=== PATIENT | male | born 1960 | race African-American/Black ===

== ENCOUNTER 2018-10-26 09:12 | Outpatient (CLI) | payer OTHER ==
[2018-10-26 11:44] LABS: Hemoglobin 12.7 g/dL (14.0-18.0); Mean Corpuscular HGB CONC 32.7 g/dL (32.0-36.0); Mean Corpuscular Hemoglobin 29.6 pg (27.0-31.0); Mean Corpuscular Volume 90.5 fL (78.0-98.0); Platelet Count 268 thou/uL (130-400); RBC Distribution Width 13.5 % (11.5-14.5); Red Blood Cell (RBC) Count 4.28 mill/uL (4.70-6.10); White Blood Cell (WBC) Count 7.2 thou/uL (4.8-10.8)
[2018-10-26 12:08] LABS: Anion Gap 15 mmol/L (10-20); BUN (Urea Nitrogen) 20 mg/dL (8.4-25.7); Calc. Creatinine Clearance 0 mL/min (70-130); Calcium 9.9 mg/dL (7.8-10.44); Carbon Dioxide 24 mmol/L (22-29); Chloride 104 mmol/L (98-107); Estimated GFR-MDRD 80; Glucose 118 mg/dL (70-105); Potassium 5.1 mmol/L (3.5-5.1); Sodium 138 mmol/L (136-145)
--- NOTE | 2018-10-26 16:31 | EKG ---
Test Reason : Blood Pressure : / mmHG Vent. Rate : 067 BPM Atrial Rate : 067 BPM P-R Int : 154 ms QRS Dur : 092 ms QT Int : 410 ms P-R-T Axes : 013 -03 006 degrees QTc Int : 433 ms Normal sinus rhythm Normal ECG No previous ECGs available Confirmed by ROB SONG, DR. Peralta ([id number]) on 10/26/2018 4:31:27 PM Referred By: HELLEN Confirmed By:DR. Kathryn RIVAS MD
== END 2018-10-26 09:13 | disposition home or self-care (01) ==
LOC: LABBT 09:12
PROVIDERS: ATTEND Neurological Surgery
DX: Z01.818 Encounter for other preprocedural examination (principal); M51.26 Other intervertebral disc displacement, lumbar region; E88.2 Lipomatosis, not elsewhere classified; G45.0 Vertebro-basilar artery syndrome
CPT/HCPCS: 80048; 85027; 93005; 93010

== ENCOUNTER 2018-11-02 06:20 | Day surgery (SDC) | payer OTHER ==
[2018-10-26 10:24] VITALS: BMI 30.6
[2018-11-02] MEDS ORDERED: Bupivacaine HCl 0.5%/Epinephrine 1:200,000/PF 30 ml Vial ONE (06:35)
[2018-11-02] MEDS ORDERED: ceFAZolin Sodium (SDC) 2 GM/100 ML BAG ONE ×2 (07:10→11:34)
[2018-11-02] MEDS ORDERED: Fentanyl 100 MCG/2 ML VIAL ONE ×3 (07:28→10:24)
--- NOTE | 2018-11-02 09:38 | OP ---
DATE OF PROCEDURE: 11/02/2018 ENTRY LEVEL MARKETING ASSISTANT: Eleazar Ramirez PA-C INDICATION: Pain. DIAGNOSIS: Lumbar stenosis with lumbar radiculopathy. PROCEDURES PERFORMED: L3 through L5 lumbar decompression, bilateral L5 foraminotomies. ANESTHESIA: General. DESCRIPTION OF PROCEDURE: The patient was brought into the operating room and placed under general anesthesia. He was flipped from the supine to prone position on the operating room table. A linear incision was planned spanning L3 through the top of S1. After prepping and draping and after an appropriate preoperative pause, the incision was created. The soft tissues were swept away from midline. Self-retaining retractors were placed in the wound for optimal exposure. After confirming the appropriate level with C-arm fluoroscopy, the spinous processes of L4, L5, and inferior aspect of L3 were removed. A high-speed cutting drill bit as well as 2, 3, and 4 mm Kerrisons were used to complete the laminectomy. The laminectomy was extended bilaterally to encompass the medial aspect of the facet joints nor adequately decompress the lateral recesses. There was a substantial degree of epidural fat present. This was also carefully suctioned away. After decompressing the central canal on the lateral recesses, we redirected our attention to foramina at L5. Foraminotomies were performed bilaterally over the exiting L5 nerve roots. The wound was then irrigated. Hemostasis was maintained throughout. The wound was then closed in anatomic layers and a pressure dressing was applied. There were no known procedural complications. Job ID: [id number]
[2018-11-02] MEDS ORDERED: Tamsulosin HCl 0.4 MG CAP ONE (10:28)
== END 2018-11-02 13:15 | disposition home or self-care (01) ==
LOC: SDC 06:20
PROVIDERS: ATTEND Neurological Surgery
PROC: 01NB0ZZ Release Lumbar Nerve, Open Approach (ICD-10-PCS; principal; 2018-11-02)
DX: M48.062 Spinal stenosis, lumbar region with neurogenic claudication (principal); M54.16 Radiculopathy, lumbar region; I12.9 Hypertensive chronic kidney disease with stage 1 through stage 4 chronic kidney disease, or unspecified chronic kidney disease; E11.21 Type 2 diabetes mellitus with diabetic nephropathy; E11.22 Type 2 diabetes mellitus with diabetic chronic kidney disease; E11.40 Type 2 diabetes mellitus with diabetic neuropathy, unspecified; N18.9 Chronic kidney disease, unspecified; E78.2 Mixed hyperlipidemia; M19.072 Primary osteoarthritis, left ankle and foot
CPT/HCPCS: 36416; 76000; J0670; J0690; J3010